=== PATIENT | female | born 1955 | race Caucasian/White ===

== ENCOUNTER → 2019-01-11 | Outpatient (CLI) | payer OTHER ==
[2018-12-27 15:00] VITALS: BP 162/50
[~2019-01-11] MED LIST: ACET325T9 PO; ALBU2.5V8 NEB; ALPR0.254 PO; AMIO200T4 PO; AMLO10TA8 PO; AMLO5TAB10 PO; ASPI-482 PO; ASPI325T11 PO; ATOR20TA58 PO; BACL20TA PO; CLON0.1T PO; CLOP75TA PO; DULO60CA6 PO; EZET10TA20 PO; FAMO20TA5 PO; FURO20TA3 PO; GLIM2TAB2 PO; INSU100V8 SQ; LANS30CA PO; LORA10TA3 PO; LOSA-73 PO; LOSA1TAB22 PO; METO25TA4 PO; OXAP600T PO; OXYC5TAB4 PO; POTA10TA12 PO; SENN-22 PO
--- NOTE | 2019-01-11 16:58 | RAD ---
Chest, PA and Lateral: Technique: PA and lateral views of the chest were obtained. History: Status post CABG. Comparison: 12/24/2018. Findings: Low lung volumes and technique accentuates heart size and pulmonary vascularity. Minimal left lung base airspace opacities likely atelectasis or infiltrate with small effusion again identified. Moderate degenerative changes thoracic spine. IMPRESSION: 1. Unchanged mild left lung base airspace opacities likely atelectasis or infiltrate with small effusion. Electronically signed by: Pedro Mckeon MD (01/11/2019 4:55 PM) [place] [id number]
== END | disposition home or self-care (01) ==
LOC: RAD 12:02
PROVIDERS: ATTEND Thoracic Surgery (Cardiothoracic Vascular Surgery)
DX: J90 Pleural effusion, not elsewhere classified (principal); M47.814 Spondylosis without myelopathy or radiculopathy, thoracic region; Z95.1 Presence of aortocoronary bypass graft
CPT/HCPCS: 71046

== ENCOUNTER → 2019-01-25 | Outpatient (CLI) | payer OTHER ==
[2018-12-27 15:00] VITALS: BP 162/50
[~2019-01-25] MED LIST changes: -GLIM2TAB2 PO; +GLIM2TAB3 PO
--- NOTE | 2019-01-25 15:29 | CARD ---
MR#: [id number] Date of Study: 01/25/2019 Ordering Physician: BEENA COCHRAN, Referring Physician: BEENA COCHRAN, Tech: Talia Wing APPROVED REPORT EXAM: Two-dimensional and M-mode echocardiogram with Doppler and color Doppler. Other Information Quality : AverageHR: 72bpm Technically limited study due to body habitus. INDICATION Congestive Heart Failure Post CABG 2D DIMENSIONS RVDd3.7 (2.9-3.5cm)Left Atrium(2D)4.0 (1.6-4.0cm) IVSd1.0 (0.7-1.1cm)Aortic Root(2D)2.8 (2.0-3.7cm) LVDd4.3 (3.9-5.9cm)LVOT Diameter2.0 (1.8-2.4cm) PWd1.1 (0.7-1.1cm)LVDs3.2 (2.5-4.0cm) FS (%) 26.3 %SV43.7 ml LVEF(%)51.8 (>50%) Aortic Valve AoV Peak Darryl.163.9cm/sAoV VTI27.1cm AO Peak GR.10.8mmHgLVOT Peak Darryl.101.5cm/s LVOT VTI 20.19cmAO Mean GR.5mmHg TISH (VMAX)1.31pc3JFW (VTI)2.45cm2 Mitral Valve MV E Jfyytndf70.6cm/sMV DECEL XEMO584mh MV A Yeywjcnl702.4cm/sMV NWV28kr E/A Ratio0.8MVA (PHT)3.23cm2 TDI E/Lateral E'9.3E/Medial E'17.2 Pulmonary Valve PV Peak Lmrovvpo947.8cm/sPV Peak Grad.5mmHg Tricuspid Valve TR P. Ltmypczh392hz/sRAP CKRSPSUZ1xtCq TR Peak Gr.99ehWgROGY46iqQw Pulmonary Vein S1 Docpxegx98.0cm/sD2 Xgefogdh52.3cm/s PVa umfuvesp676vchg LEFT VENTRICLE The left ventricle is normal size. There is borderline concentric left ventricular hypertrophy. The l eft ventricular systolic function is normal and the ejection fraction is within normal range. The Eje ction Fraction is 55-60%. There is normal LV segmental wall motion. Transmitral Doppler flow pattern is Grade I-abnormal relaxation pattern. RIGHT VENTRICLE The right ventricle is borderline dilated. There is normal right ventricular wall thickness. The righ t ventricular systolic function is normal. ATRIA The left atrium is borderline dilated. The right atrium is borderline dilated. The interatrial septum is intact with no evidence for an atrial septal defect or patent foramen ovale as noted on 2-D or Do ppler imaging. AORTIC VALVE The aortic valve is thickened but opens well. Doppler and Color Flow revealed no significant aortic r egurgitation. There is no significant aortic valvular stenosis. MITRAL VALVE Mitral annular calcification is moderate. There is no evidence of mitral valve prolapse. There is no mitral valve stenosis. Doppler and Color-flow revealed trace mitral regurgitation. TRICUSPID VALVE The tricuspid valve is normal in structure and function. Doppler and Color Flow revealed trace tricus pid regurgitation with an estimated PAP of 38 mmHg. There is no tricuspid valve prolapse or vegetatio n. There is no tricuspid valve stenosis. PULMONIC VALVE The pulmonary valve is normal in structure and function. Doppler and Color Flow revealed no pulmonic valvular regurgitation. There is no pulmonic valvular stenosis. GREAT VESSELS The aortic root is normal in size. The IVC is normal in size and collapses >50% with inspiration. PERICARDIAL EFFUSION There is no evidence of significant pericardial effusion. Critical Notification Critical Value: No <Conclusion> The left ventricular systolic function is normal and the ejection fraction is within normal range. Th e Ejection Fraction is 55-60%. There is normal LV segmental wall motion. Signed by : Jesus Collins, Electronically Approved : 01/25/2019 15:29:07
== END | disposition home or self-care (01) ==
LOC: ECHO 12:45
PROVIDERS: ATTEND Internal Medicine Cardiovascular Disease
DX: I05.8 Other rheumatic mitral valve diseases (principal); Z95.1 Presence of aortocoronary bypass graft
CPT/HCPCS: 93306

== ENCOUNTER → 2019-01-31 | Outpatient (CLI) | payer OTHER ==
[2018-12-27 15:00] VITALS: BP 162/50
--- NOTE | 2019-01-31 12:47 | RAD ---
CHEST PA LATERAL Clinical indications: Coronary artery disease. COMPARISON: January 11, 2019. Findings: There is minimal. The left lung base infiltrate or atelectasis with improvement of left-sided pleural effusion. Minimal residual left-sided pleural effusion is seen. Sternotomy is again evident. The heart size, pulmonary vasculature, mediastinum and both cristina are otherwise unremarkable. The osseous structures appear intact. Impression: Interval clearing of left lung base infiltrate or atelectasis with improvement of left-sided pleural effusion. Electronically signed by: Vito Sanchez MD (01/31/2019 12:44 PM) [id number]
== END | disposition home or self-care (01) ==
LOC: RAD 10:56
PROVIDERS: ATTEND Internal Medicine Cardiovascular Disease
DX: I25.810 Atherosclerosis of coronary artery bypass graft(s) without angina pectoris (principal); J90 Pleural effusion, not elsewhere classified; Z95.1 Presence of aortocoronary bypass graft
CPT/HCPCS: 71046

== ENCOUNTER → 2019-02-07 | Outpatient (CLI) | payer OTHER ==
[2018-12-27 15:00] VITALS: BP 162/50
--- NOTE | 2019-02-07 09:57 | RAD ---
Examination: LUNG VENT/PERFUSION SCAN(VQ) History: Dyspnea for the past weeks. Recent CABG. Comparison/Correlation: 01/31/2019 two-view chest x-ray exam Findings: 0.9 mCi xenon-133 gas was administered. Imaging in anterior and posterior projections was performed. Ventilation is unremarkable. 5 mCi technetium 99m MAA was intravenously administered for perfusion imaging. There is no matched or mismatched defect. Impression: Low probability for pulmonary embolism. Electronically signed by: Filemon Sow MD (02/07/2019 9:54 AM) [facility]
== END | disposition home or self-care (01) ==
LOC: NM 07:30
PROVIDERS: ATTEND Internal Medicine Cardiovascular Disease
DX: R06.00 Dyspnea, unspecified (principal); Z95.1 Presence of aortocoronary bypass graft
CPT/HCPCS: 78582; 96374; A9540; A9558